=== PATIENT | male | born 1990 | race Caucasian/White ===

== ENCOUNTER 2020-02-28 03:49 | Emergency (ER) | payer SELFPAY ==
[~2020-02-28] VITALS: Ht 182.9 cm; Wt 80.0 kg
[2020-02-28 04:00] VITALS: BP 147/82
== END 2020-02-28 09:40 | disposition home or self-care (01) ==
LOC: ER 03:57
DX: R45.7 State of emotional shock and stress, unspecified (principal)
CPT/HCPCS: 99283